=== PATIENT | male | born 1980 | race Two or more races ===

== ENCOUNTER 2021-07-04 15:27 | Inpatient (IN) | payer MEDICAID, OTHER ==
[~2021-07-04] VITALS: Ht 180.3 cm; Wt 94.2 kg
[2021-07-04] MEDS ORDERED: HYDROmorphone HCL 2 MG/ML VL IV ONE ×2 (15:45→20:15)
[2021-07-04] MEDS ORDERED: SODIUM CHLORIDE 0.9% 1,000 ML IV ONE (15:45)
[2021-07-04] MEDS ORDERED: ONDANSETRON HCL 4 MG/2 ML VIAL IV ONE ×3 (15:45→20:15)
[2021-07-04] MEDS ORDERED: MORPHINE SULFATE 4 MG/ML SYR/VIAL IV ONE (17:15)
[2021-07-04 17:35] LABS: Albumin 3.5 g/dL (3.4-5.0); Calcium 8.1 mg/dL (8.5-10.1)
[2021-07-04 17:38] LABS: BUN/Creatinine Ratio 18.6; Bilirubin, Total 0.4 mg/dL (0.2-1.0)
[2021-07-04 18:30] LABS: Basophils # (auto) 0.3 10 ^3/uL (0-0.2); Basophils % (auto) 1.6 % (0.0-2.0); Eosinophils # (auto) 0 10 ^3/uL (0-0.8); Eosinophils % (auto) 0.3 % (0.0-7.0); Hematocrit 39.8 % (41.0-53.0); Hemoglobin 13.6 g/dL (13.5-17.5); Lymphocytes # (auto) 0.9 10 ^3/uL (0.4-5.4); Mean Corpuscular Hemoglobin 29.1 pg (28.0-32.0); Mean Corpuscular Hgb Conc. 34.2 g/dL (32.0-36.0); Mean Corpuscular Volume 85.1 fL (80.0-100.0); Monocytes # (auto) 0.8 10 ^3/uL (0-1.3); Monocytes % (auto) 4.5 % (0.0-12.0); Neutrophils # (auto) 16.1 10 ^3/uL (1.6-8.6); Neutrophils % (auto) 88.6 % (37.0-80.0); Red Blood Cells 4.68 10^6/uL (4.5-5.90); Red Cell Distribution Width 14.2 % (11.8-14.3); White Blood Cell 18.2 10^3/uL (4.4-10.8)
[2021-07-04 18:41] LABS: INR 1.07 (0.9-1.15); Partial Thromboplastin Time 24.4 sec (23.6-33.0)
[2021-07-04] MEDS ORDERED: ACETAMINOPHEN 325 MG TAB PO PRN (21:30)
[2021-07-04] MEDS ORDERED: ONDANSETRON HCL 4 MG/2 ML VIAL IV PRN (21:30)
[2021-07-04] MEDS: D5W/SOD CHLO 0.9% 1,000 ML IV SCH (22:14)
[2021-07-05] VITALS (7 sets, daily range): BP systolic 121–141; BP diastolic 65–89
[2021-07-05] MEDS: HYDROcodone-ACET 5/325MG TAB PO PRN ×3 (03:43→16:12)
[2021-07-05] MEDS: MORPHINE SULFATE 4 MG/ML SYR/VIAL IV PRN ×3 (04:33→08:48)
[2021-07-05 05:05] LABS: Basophils # (auto) 0 10 ^3/uL (0-0.2); Basophils % (auto) 0.3 % (0.0-2.0); Eosinophils # (auto) 0 10 ^3/uL (0-0.8); Eosinophils % (auto) 0.1 % (0.0-7.0); Hematocrit 38.2 % (41.0-53.0); Lymphocytes # (auto) 2.2 10 ^3/uL (0.4-5.4); Lymphocytes % (auto) 16.2 % (10.0-50.0); Mean Corpuscular Hemoglobin 28.5 pg (28.0-32.0); Mean Corpuscular Volume 83.9 fL (80.0-100.0); Monocytes # (auto) 1.3 10 ^3/uL (0-1.3); Monocytes % (auto) 9.8 % (0.0-12.0); Neutrophils # (auto) 9.9 10 ^3/uL (1.6-8.6); Neutrophils % (auto) 73.6 % (37.0-80.0); Red Blood Cells 4.55 10^6/uL (4.5-5.90); White Blood Cell 13.4 10^3/uL (4.4-10.8)
[2021-07-05 05:22] LABS: BUN/Creatinine Ratio 14.5; Calcium 8.4 mg/dL (8.5-10.1); Potassium 3.9 mmol/L (3.5-5.1)
[2021-07-05] MEDS: D5W/SOD CHLO 0.9% 1,000 ML IV SCH (11:27)
[2021-07-05] MEDS: HYDROmorphone HCL 2 MG/ML VL IV PRN ×3 (13:17→21:55)
[2021-07-05] MEDS: CALCIUM W/VIT D (600MG/400IU) TAB PO SCH (18:11)
[2021-07-05] MEDS: FAMOTIDINE 20 MG TAB PO SCH (21:56)
[2021-07-06] VITALS (11 sets, daily range): BP systolic 102–142; BP diastolic 71–88
[2021-07-06] MEDS: HYDROcodone-ACET 5/325MG TAB PO PRN ×2 (00:01→05:16)
[2021-07-06] MEDS: HYDROmorphone HCL 2 MG/ML VL IV PRN ×4 (01:21→11:11)
[2021-07-06 06:52] LABS: Basophils # (auto) 0 10 ^3/uL (0-0.2); Basophils % (auto) 0.2 % (0.0-2.0); Eosinophils # (auto) 0.1 10 ^3/uL (0-0.8); Eosinophils % (auto) 0.7 % (0.0-7.0); Hematocrit 39.7 % (41.0-53.0); Hemoglobin 13.8 g/dL (13.5-17.5); Lymphocytes # (auto) 2.3 10 ^3/uL (0.4-5.4); Lymphocytes % (auto) 17.6 % (10.0-50.0); Mean Corpuscular Hemoglobin 29.2 pg (28.0-32.0); Mean Corpuscular Hgb Conc. 34.7 g/dL (32.0-36.0); Monocytes # (auto) 1.5 10 ^3/uL (0-1.3); Monocytes % (auto) 11.5 % (0.0-12.0); Neutrophils # (auto) 9.3 10 ^3/uL (1.6-8.6); Red Blood Cells 4.73 10^6/uL (4.5-5.90); Red Cell Distribution Width 13.9 % (11.8-14.3); White Blood Cell 13.2 10^3/uL (4.4-10.8)
[2021-07-06 07:05] LABS: BUN/Creatinine Ratio 14.3; Calcium 8.6 mg/dL (8.5-10.1)
[2021-07-06] MEDS: CALCIUM W/VIT D (600MG/400IU) TAB PO SCH ×2 (08:04→18:50)
[2021-07-06] MEDS: FAMOTIDINE 20 MG TAB PO SCH ×2 (09:16→22:02)
[2021-07-06] MEDS ORDERED: SOD CHL 0.9%/ KCL 20MEQ 1,000 ML IV SCH (09:45)
[2021-07-06] MEDS ORDERED: ONDANSETRON HCL 4 MG/2 ML VIAL ONE (12:09)
[2021-07-06] MEDS ORDERED: PROPOFOL 10 MG/ML 20 ML IV ONE (12:09)
[2021-07-06] MEDS ORDERED: fentaNYL CITRATE 100 MCG/2 ML VL ONE (12:09)
[2021-07-06] MEDS ORDERED: MIDAZOLAM HCL 2MG/2ML 2ml VIAL (1mg/ml) ONE (12:09)
[2021-07-06] MEDS ORDERED: MORPHINE SULF PF 2 MG/2 ML SYRG ONE (12:09)
[2021-07-06] MEDS ORDERED: EPINEPHrine HCL 1 MG/1 ML AMP ONE ×2 (12:11→14:37)
[2021-07-06] MEDS ORDERED: BUPIVACAINE/DEXTROSE MPF 0.75% 2 ML AMP IT ONE (12:11)
[2021-07-06] MEDS ORDERED: TETRACAINE 1% INJ 2 ML VIAL IJ ONE (12:16)
[2021-07-06] MEDS ORDERED: ceFAZolin 1GM/50ML 100 ML IV ONE (13:23)
[2021-07-06] MEDS ORDERED: TRANEXAMIC ACID 10 ML ONE ×2 (14:43→15:31)
[2021-07-06] MEDS ORDERED: METOCLOPRAMIDE HCL 5MG/ml INJ 2ml VIAL IV PRN (15:45)
[2021-07-06] MEDS ORDERED: HYDROmorphone HCL 2 MG/ML VL IV PRN (15:45)
[2021-07-06] MEDS ORDERED: MORPHINE SULFATE 4 MG/ML SYR/VIAL IV PRN (15:45)
[2021-07-06] MEDS ORDERED: NALOXONE HCL 0.4 MG/ML VIAL IV PRN (15:45)
[2021-07-06] MEDS: SODIUM CHLORIDE 0.9% 1,000 ML IV SCH (18:51)
[2021-07-07] VITALS (26 sets, daily range): BP systolic 107–149; BP diastolic 72–100
[2021-07-07] MEDS: SODIUM CHLORIDE 0.9% 1,000 ML IV SCH ×4 (02:51→18:04)
[2021-07-07 06:06] LABS: Basophils # (auto) 0 10 ^3/uL (0-0.2); Basophils % (auto) 0.1 % (0.0-2.0); Eosinophils # (auto) 0 10 ^3/uL (0-0.8); Hematocrit 33.5 % (41.0-53.0); Hemoglobin 11.3 g/dL (13.5-17.5); Lymphocytes # (auto) 1.5 10 ^3/uL (0.4-5.4); Lymphocytes % (auto) 11.1 % (10.0-50.0); Mean Corpuscular Hemoglobin 28.6 pg (28.0-32.0); Mean Corpuscular Hgb Conc. 33.9 g/dL (32.0-36.0); Mean Corpuscular Volume 84.3 fL (80.0-100.0); Monocytes # (auto) 1.7 10 ^3/uL (0-1.3); Monocytes % (auto) 12.8 % (0.0-12.0); Neutrophils # (auto) 10.4 10 ^3/uL (1.6-8.6); Red Blood Cells 3.97 10^6/uL (4.5-5.90); Red Cell Distribution Width 13.6 % (11.8-14.3); White Blood Cell 13.7 10^3/uL (4.4-10.8)
[2021-07-07 06:22] LABS: Potassium 4.3 mmol/L (3.5-5.1)
[2021-07-07 06:24] LABS: BUN/Creatinine Ratio 23.3
[2021-07-07] MEDS: CALCIUM W/VIT D (600MG/400IU) TAB PO SCH ×2 (08:24→18:03)
[2021-07-07] MEDS: diphenhdrAMINE HCL 50 MG/1 ML VL IV PRN ×3 (09:41→21:28)
[2021-07-07] MEDS: FAMOTIDINE 20 MG TAB PO SCH ×2 (09:58→21:28)
[2021-07-07] MEDS: HYDROmorphone HCL 2 MG/ML VL IV PRN ×4 (10:00→21:06)
[2021-07-07] MEDS: ENOXAPARIN SOD 40 MG/0.4 ML SYRINGE SC SCH (18:04)
[2021-07-08] MEDS: SODIUM CHLORIDE 0.9% 1,000 ML IV SCH (01:15)
[2021-07-08] MEDS: HYDROmorphone HCL 2 MG/ML VL IV PRN ×2 (01:19→04:39)
[2021-07-08] MEDS: diphenhdrAMINE HCL 50 MG/1 ML VL IV PRN (03:00)
[2021-07-08 05:00] VITALS: BP 139/88
[2021-07-08] MEDS: ENOXAPARIN SOD 40 MG/0.4 ML SYRINGE SC SCH (08:55)
[2021-07-08] MEDS: CALCIUM W/VIT D (600MG/400IU) TAB PO SCH (08:55)
[2021-07-08] MEDS: FAMOTIDINE 20 MG TAB PO SCH (08:55)
[2021-07-08] MEDS: HYDROcodone-ACET 10/325MG TAB PO PRN ×2 (08:56→12:59)
[2021-07-08 09:00] VITALS: BP 133/83
[2021-07-08] MEDS ORDERED: RIVA10TA PO (10:18)
[2021-07-08] MEDS ORDERED: CALC600T80 PO (10:18)
[2021-07-08] MEDS ORDERED: IBUP600T27 PO (10:18)
[2021-07-08 13:00] VITALS: BP 128/77
[2021-07-08 14:04] VITALS: BP 133/83
== END 2021-07-08 17:17 | disposition home or self-care (01) | DRG 308 ==
LOC: ER 15:27 → EDBD 15:27 → ER 17:07 → OVERFLOW 21:34 → CENTRAL 22:50 → TELE-CENTR 07-06 23:18 → CENTRAL 07-07 18:06
PROVIDERS: ADMIT Nurse Practitioner; ATTEND Internal Medicine
PROC: 0QSC04Z Reposition Left Lower Femur with Internal Fixation Device, Open Approach (ICD-10-PCS; principal; 2021-07-06 13:50)
DX: S72.462A Displaced supracondylar fracture with intracondylar extension of lower end of left femur, initial encounter for closed fracture (principal); F17.210 Nicotine dependence, cigarettes, uncomplicated; W11.XXXA Fall on and from ladder, initial encounter; Z20.822 Contact with and (suspected) exposure to COVID-19; Z82.49 Family history of ischemic heart disease and other diseases of the circulatory system; Z90.49 Acquired absence of other specified parts of digestive tract; Y93.89 Activity, other specified; Y92.89 Other specified places as the place of occurrence of the external cause; Y99.8 Other external cause status
CPT/HCPCS: 36415; 71045; 72192; 73700; 76000; 80048; 80053; 85025; 85610; 85730; 86850; 86900; 86901; 87426; 96374; 96375; 96376; 97110; 97116; 97163; 97530; G0378; J0171; J0690; J2250; J2405; J2704

== ENCOUNTER 2021-10-26 06:13 | Emergency (ER) | payer MEDICAID ==
[~2021-10-26] VITALS: Ht 180.3 cm; Wt 90.7 kg
[~2021-10-26 06:13] MED LIST: CALC600T80 PO; IBUP600T27 PO; RIVA10TA PO
[2021-10-26 06:14] VITALS: BP 146/89
[2021-10-26] MEDS ORDERED: DOXY-286 PO (07:22)
[2021-10-26] MEDS ORDERED: BENZ100C19 PO (07:22)
[2021-10-26] MEDS ORDERED: PRED20TA2 PO (07:22)
== END 2021-10-26 08:47 | disposition home or self-care (01) ==
LOC: ER 06:13
DX: J06.9 Acute upper respiratory infection, unspecified (principal); F17.210 Nicotine dependence, cigarettes, uncomplicated; Z90.49 Acquired absence of other specified parts of digestive tract; Z20.822 Contact with and (suspected) exposure to COVID-19
CPT/HCPCS: 36415; 71045